=== PATIENT | male | born 1970 | race Caucasian/White ===

== ENCOUNTER → 2018-01-11 | Outpatient (CLI) | payer BC ==
--- NOTE | 2018-01-11 14:45 | DIAGNOSTIC IMAGING REPORT ---
ABDOMINAL ULTRASOUND, RIGHT UPPER QUADRANT HISTORY: Right upper quadrant abdominal pain and diarrhea. COMPARISON: None. FINDINGS: Exam is compromised by suboptimal penetration. Increased hepatic echogenicity represents fatty infiltration with a small focus of fatty sparing within the gallbladder fossa. A 1.5 cm left hepatic lobe cyst is noted. There is no biliary ductal dilatation. Gallbladder is normal. No gallstones are identified. Pancreas is obscured by overlying bowel gas. A 9 mm right renal cyst is noted. There is no right hydronephrosis. IMPRESSION: 1. No gallstones or biliary ductal dilatation. 2. Fatty infiltration of the liver. 3. Obscured pancreas due to overlying bowel gas. Electronically signed by: Aleks Garner M.D. 01/11/2018 2:44 PM Dictated Date/Time: 01/11/2018 2:43 PM
[2018-01-11 15:42] LABS: BASO % 0.6 %; BASO ABS # 0.07 K/uL (0-0.2); EOS % 1.1 %; EOS ABS # 0.12 K/uL (0-0.5); HEMATOCRIT 45.3 % (42-52); HEMOGLOBIN 15.4 g/dL (14.0-18.0); IG# 0.07 K/uL (0.00-0.02); LYMPH % 11.7 %; LYMPH ABS # 1.28 K/uL (1.2-3.4); MEAN CELL VOLUME 91.1 fL (80-100); MEAN PLATELET VOLUME 10.3 fL (7.4-10.4); MONO % 12.9 %; MONO ABS # 1.42 K/uL (0.11-0.59); NEUT % 73.1 %; NEUT ABS # 8.01 K/uL (1.4-6.5); PLATELET COUNT 235 K/uL (130-400); RED CELL DISTRIBUTION WIDTH CV 12.7 % (11.5-14.5); WHITE BLOOD COUNT 10.97 K/uL (4.8-10.8)
[2018-01-11 16:09] LABS: ALBUMIN 3.4 gm/dl (3.4-5.0); ALKALINE PHOSPHATASE 88 U/L (45-117); ALT/SGPT 27 U/L (12-78); AST/SGOT 20 U/L (15-37); BLOOD UREA NITROGEN 22 mg/dl (7-18); CALCIUM 9.3 mg/dl (8.5-10.1); CARBON DIOXIDE 27 mmol/L (21-32); CREATININE 1.42 mg/dl (0.60-1.40); GLUCOSE 92 mg/dl (70-99); LIPASE 122 U/L (73-393); POTASSIUM 4.2 mmol/L (3.5-5.1); SODIUM 138 mmol/L (136-145); TOTAL PROTEIN 7.6 gm/dl (6.4-8.2)
== END | disposition home or self-care (01) ==
LOC: C.ULTRBC 14:18
PROVIDERS: ATTEND Family Medicine
DX: R10.11 Right upper quadrant pain (principal); R19.7 Diarrhea, unspecified

== ENCOUNTER → 2018-01-12 | Outpatient (CLI) | payer BC | END | disposition home or self-care (01) | LOC: C.LABMFLN 13:29 | PROVIDERS: ATTEND Family Medicine | DX: R19.7 Diarrhea, unspecified (principal); R10.9 Unspecified abdominal pain; R82.90 Unspecified abnormal findings in urine ==

== ENCOUNTER → 2018-01-26 | Outpatient (CLI) | payer BC | END | disposition home or self-care (01) | LOC: C.LAB 15:08 | PROVIDERS: ATTEND Family Medicine | DX: R82.90 Unspecified abnormal findings in urine (principal) ==